=== PATIENT | female | born 1965 | race Caucasian/White ===

== ENCOUNTER 2023-02-24 17:19 | Emergency (ER) | payer MEDICAID, SELFPAY ==
[2023-02-24 17:25] VITALS: BP 162/82; PULSE 89; RESP 18; TEMP 36.9; O2SAT 98
--- NOTE | 2023-02-24 17:39 | ED.GENADUL_ITS ---
Discharge Plan Disposition Patient Disposition: Home Discharge Details Clinical Impression: Chest wall contusion, Traumatic injury of rib Primary Care Provider: Vicente Caldwell ED Provider: Gabo Salamanca Home Meds and New Rx's Prescriptions: New hydrocodone-acetaminophen 5-325 mg tablet 1 tab PO Q8H PRN (Reason: pain) Qty: 7 0RF Discharge Instructions Instructions: How to Use an Incentive Spirometer (ED), Contusion in Adults (ED) Additional Instructions: Incentive spirometer 5-6 times per per hour while awake for the next 5 to 7 days time. Ibuprofen as needed for pain with hydrocodone/acetaminophen as needed for severe or breakthrough pain. No additional Tylenol, alcohol, or driving with this medication. Return if develop a fever, increasing pain, or any other acute concerns. Medical Decision Making This is a 57-year-old female who fell while walking her dog 1 week ago. She was pulled down 3 stairs landing on her right side. There was no loss of consciousness. Since that time she complains primarily of right-sided chest wall pain that is worse with movement and breathing. She has not been short of breath. She does not have significant headache or neck pain. No motor weakness, numbness or tingling of the extremities. Given the patient's reproducible chest wall pain and trauma within the past week, she was referred for x-ray of ribs and chest. There are no acute findings per the radiology read. I do question a distal 11th bony abnormality consistent with cracked rib, regardless I will treat the patient with increased analgesia at home. She understands indications to seek return. She will be discharged with chest wall contusion. HPI General Mode of arrival: ambulatory . Date/Time Provider Initiated Documentation: 02/24/23 17:20 . Limitations to Documentation: no limitations . Information obtained by: patient and family . History of Present Illness 57 year old F presents to the emergency department with the chief complaint of Fall, pain, described as moderate, Quality is described as dull and constant, and is localized to the chest and right. Patient reports no radiation. Patient started experiencing this day(s) and it has been constant. Rest improves symptom(s), Movement worsens symptoms . Patient notes denies headaches, nausea/vomiting, shortness of breath and syncope. Patient did receive the following treatments prior to arrival, Aspirin Related Data Home Medications Medication Instructions Recorded Confirmed hydrocodone 5 mg-acetaminophen 325 1 tab PO Q8H PRN pain #7 tabs 02/24/23 mg tablet Previous Rx's Medication Instructions Recorded hydrocodone 5 mg-acetaminophen 325 1 tab PO Q8H PRN pain #7 tabs 02/24/23 mg tablet Allergies Allergy/AdvReac Type Severity Reaction Status Date / Time Iodinated Contrast Media Allergy Severe Other (See Unverified 02/24/23 17:33 Comment) gabapentin Allergy Itching Unverified 02/24/23 17:33 Penicillins Allergy Hives Unverified 02/24/23 17:33 pregabalin [From Lyrica] Allergy Itching Unverified 02/24/23 17:33 General Stated Complaint: Fall/Non TraumaCriteria DONA: 3 Review of Systems Narrative: No abdominal pain, normal bowel movements, no hematuria. No numbness or tingling or weakness of the extremities. 6 systems reviewed and otherwise negative PFSH All Active Problems (Updated 02/24/23 @ 18:59 by Gabo Salamanca MD) Chest wall contusion (Acute) Traumatic injury of rib (Acute) Social History Smoking/Tobacco Use Status: Never Smoking risk assessment performed?: Yes Do you feel safe at home: Yes Exam Narrative Exam Narrative: GEN: awake, alert, oriented 3. Pleasant, well groomed, interactive. HEAD: Normocephalic, atraumatic ENT: Mucous membranes moist, oropharynx unremarkable, right tympanic membrane slightly congested, pearlescent. Left tympanic membrane unremarkable. Mild tenderness right lateral orbit, normal facial sensation, extraocular movements are intact external ear exam unremarkable EYES: PERRL, EOMI NECK: Full ROM, no DAMIR, no menigismus CHEST/RESP: Right lateral chest wall tenderness, no crepitus,, clear to auscultation bilateral, no wheeze/rhonchi/rales CARDIOVASCULAR: RRR, no murmur, rub luc. 2+ Rad pulse bilateral ABDOMEN: Soft, nontender, no mass. +Bowel sounds EXT: Full ROM, no edema, no rash Neuro: Grossly normal neurologic exam, conversant, interactive. Psych: Speech fluent, thoughts congruent, affect normal Course Vital Signs Vital signs: Vital Signs Temperature 36.9 C 02/24/23 17:25 Pulse 89 02/24/23 17:25 Respiratory Rate 18 02/24/23 17:25 Blood Pressure 162/82 H 02/24/23 17:25 Pulse Oximetry 98 02/24/23 17:25 Temperature 36.9 C 02/24/23 17:25 Temperature Source Oral 02/24/23 17:25 Pulse 89 02/24/23 17:25 Respiratory Rate 18 02/24/23 17:25 Respiratory Effort Normal 02/24/23 17:36 Blood Pressure 162/82 H 02/24/23 17:25 Blood Pressure Position Sitting 02/24/23 17:25 Pulse Oximetry 98 02/24/23 17:25 Oxygen Delivery Method Room Air 02/24/23 17:25 Oxygen Flow Rate 0 02/24/23 17:25 Pain Level 10 02/24/23 17:25
--- NOTE | 2023-02-24 17:45 | DI.RAD_ITS ---
Exam(s) XR RIBS RT PA CHEST 3V EXAM: XR RIBS RT PA CHEST 3V CLINICAL HISTORY: fall 1 wk ago, R pain TECHNIQUE: 2D digital imaging was performed.Five images were obtained. COMPARISON: No exams were available for comparison FINDINGS: MEDIASTINUM: Normal. HEART: Normal. PULMONARY VASCULATURE: Normal. LUNGS: Clear. PLEURAL SPACE: No pleural effusion or pneumothorax. BONE:Normal. RIGHT RIBS: No acute fracture. There is some deformity of the anterior lateral aspects of the lower ribs but no fractures identified. OTHER FINDINGS:Normal. IMPRESSION: 1. No acute pulmonary findings. 2. No acute rib fracture. DATA REPOSITORY: RADIATION DOSE DELIVERED:
--- NOTE | 2023-02-24 18:51 | DI.VRAD_ITS ---
PROCEDURE INFORMATION: Exam: XR Right Chest Exam date and time: 02/24/2023 6:17 PM Age: 57 years old Clinical indication: Other: Fall 1 wk ago, R pain TECHNIQUE: Imaging protocol: Right Radiologic exam of the chest. Views: 1 view. COMPARISON: No relevant prior studies available. FINDINGS: Lungs: Unremarkable. No consolidation. Pleural spaces: Unremarkable. No pleural effusion. No pneumothorax. Heart/Mediastinum: Unremarkable. No cardiomegaly. Bones/joints: Unremarkable. IMPRESSION: No acute findings. Dictated and Authenticated by: Linus Calderón MD. Ordering:LUCIAN Ayon MD
[2023-02-24 19:08] VITALS: BP 133/91; PULSE 104; RESP 20; O2SAT 98
--- NOTE | 2023-02-25 15:50 | NUR.NOTE ---
Nursing Note: [facility] called stating that Dr. Salamanca did not sign the prescription for hydrocodone. Per Dr. Carranza, he is unable to do a narcotic prescription for the patient due to him not having evaluated the patient. She can return for recheck is she chooses to. Tried calling the patient but the phone number in the chart is not the patient's number.
== END 2023-02-24 19:11 | disposition home or self-care (01) ==
PROVIDERS: Emergency Provider Emergency Medicine; PCP Family Medicine
DX: S20.211A Contusion of right front wall of thorax, initial encounter (principal); W10.9XXA Fall (on) (from) unspecified stairs and steps, initial encounter; Y93.K1 Activity, walking an animal; Y92.9 Unspecified place or not applicable
CPT/HCPCS: 99283; 71046; 71100